=== PATIENT | male | born 1985 | race Caucasian/White ===

== ENCOUNTER 2017-04-12 16:34 | Emergency (ER) | payer MEDICAID ==
[~2017-04-12] VITALS: Ht 182.9 cm; Wt 108.2 kg
[2017-04-12 17:27] VITALS: BP 130/73
[2017-04-12] MEDS ORDERED: IBUPROFEN 600 MG TABLET PO ONE (17:30)
== END 2017-04-12 18:20 | disposition home or self-care (01) ==
LOC: EMS 16:37 → EDSEX 16:37 → EMS 18:20
DX: S50.01XA Contusion of right elbow, initial encounter (principal); M54.5 Low back pain; W10.9XXA Fall (on) (from) unspecified stairs and steps, initial encounter; Y93.89 Activity, other specified; Y92.89 Other specified places as the place of occurrence of the external cause; Y99.8 Other external cause status
CPT/HCPCS: 99284